=== PATIENT | male | born 1950 | race American Indian/Alaskan Native ===

== ENCOUNTER 2018-08-20 18:40 | Emergency (ER) | payer MEDICARE, OTHER ==
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
[2018-08-20 21:15] LABS: BASO % 0.5 % (0.0-2.0); EOS # 0.2 K/uL (0.0-0.7); EOS % 2.3 % (0.0-4.0); HEMOGLOBIN 13.3 g/dL (12.0-18.0); LYMPH # 1.5 K/uL (1.0-4.3); LYMPH % 22.1 % (20.0-40.0); MEAN CELL VOLUME 87.6 fL (80.0-94.0); MEAN CORPUSCULAR HEMOGLOBIN 29.9 pg (27.0-31.0); MEAN CORPUSCULAR HGB CONC 34.2 g/dL (33.0-37.0); MEAN PLATELET VOLUME 8.2 fL (7.2-11.7); MONO # 0.4 K/uL (0.0-0.8); MONO % 5.3 % (0.0-10.0); NEUT # 4.7 K/uL (1.8-7.0); NEUT % 69.8 % (50.0-75.0); NRBC % 0.1 % (0.0-2.0); RBC 4.44 Mil/uL (4.40-5.90); RED CELL DISTRIBUTION WIDTH 14.8 % (11.5-14.5); WHITE BLOOD COUNT 6.8 K/uL (4.8-10.8)
[2018-08-20 21:27] LABS: ALB/GLOB RATIO 1.5 (1.0-2.1); ALBUMIN 4.7 g/dL (3.5-5.0); CALCIUM 9.8 mg/dl (8.6-10.4)
[2018-08-20 21:39] LABS: TROPONIN I 0.012 ng/mL (0.00-0.120)
[2018-08-21 05:37] VITALS: BP 151/92; PULSE 61; RESP 22; TEMP 98; O2SAT 98
--- NOTE | 2018-08-21 08:14 | CT ---
Date of service: 08/20/2018 PROCEDURE: CT HEAD WITHOUT CONTRAST. HISTORY: Headache COMPARISON: None available. TECHNIQUE: Axial computed tomography images were obtained through the head/brain without intravenous contrast. Radiation dose: Total exam DLP = 1102 mGy-cm. This CT exam was performed using one or more of the following dose reduction techniques: Automated exposure control, adjustment of the mA and/or kV according to patient size, and/or use of iterative reconstruction technique. FINDINGS: HEMORRHAGE: No intracranial hemorrhage. BRAIN: No mass effect or edema. Scattered focal lucencies in the subcortical and periventricular white matter most prominent in the bilateral parietal region suggestive for chronic microvascular ischemic change. Bilateral basal ganglia lacunar infarcts. VENTRICLES: Unremarkable. No hydrocephalus. CALVARIUM: Unremarkable. 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 Deformities of the nasal bones may also be chronic. Clinical correlation. PARANASAL SINUSES: Unremarkable as visualized. No significant inflammatory changes. MASTOID AIR CELLS: Unremarkable as visualized. No inflammatory changes. OTHER FINDINGS: None. IMPRESSION: Chronic microvascular ischemic changes. Bilateral basal ganglia lacunar infarcts. 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 Deformities of the nasal bones may also be chronic. Clinical correlation. If symptoms persist, consider correlation with MRI. These findings were preliminarily reported at 9:25 p.m. on 08/20/[address] Harjinder Nelson from [employer].
--- NOTE | 2018-08-21 10:29 | RAD ---
HISTORY: lightheaded COMPARISON: None available. TECHNIQUE: Chest, one view. FINDINGS: LUNGS: Mild bibasilar and apical atelectasis/scarring. Please note that chest x-ray has limited sensitivity for the detection of pulmonary masses. PLEURA: No significant pleural effusion identified. No definite pneumothorax . CARDIOVASCULAR: Heart size appears within normal limits. OSSEOUS STRUCTURES: Degenerative changes. VISUALIZED UPPER ABDOMEN: Unremarkable. OTHER FINDINGS: None. IMPRESSION: Mild basilar and biapical atelectasis/scarring.
--- NOTE | 2018-08-21 12:14 | RAD ---
Date of service: 08/20/18 Bilateral ankle radiographs Comparison: None available Findings: 1.3 x 0.7 cm lucent ovoid lesion within the distal right tibia. No acute displaced fracture or dislocation. Marked bilateral soft tissue swelling. No evidence of radiopaque foreign body. Mild irregularity about the left medial distal fibula and lateral distal tibia, possibly periosteal reaction. Impression: 1.3 x 0.7 cm lucent ovoid lesion within the distal right tibia. No acute displaced fracture or dislocation. Marked bilateral soft tissue swelling, [id number]. Mild irregularity about the left medial distal fibula and lateral distal tibia, possibly periosteal reaction. Study marked for PA review.
== END 2018-08-21 06:13 | disposition home or self-care (01) ==
LOC: C.ER 18:40
DX: R51 Headache (principal)